=== PATIENT | male | born 1970 | race Caucasian/White ===

== ENCOUNTER → 2016-08-05 | Outpatient (CLI) | payer SELFPAY ==
[~2016-08-05] MED LIST: ACYCLOVIR PO; BACTRIM DS TABL1 TA2 PO; SEROQUEL25 MG PO; TYL325 PO
[2016-08-05 15:33] LABS: HEMATOCRIT 42.8 % (38.0-50.0); HEMOGLOBIN 14.6 gm/dL (13.0-16.0); MEAN CELL VOLUME 89.8 FL (83-96); MEAN CORPUSCULAR HEMOGLOBIN 30.6 PG (28-34); MEAN CORPUSCULAR HGB CONC 34.1 g/dL (30-36); MEAN PLATELET VOLUME 8.4 FL (6.5-11.5); RED BLOOD COUNT 4.76 X10e (3.90-5.60); RED CELL DISTRIBUTION WIDTH 13.1 % (11.0-15.5); WHITE BLOOD COUNT 7.8 X10e3 (4.0-10.5)
[2016-08-05 15:48] LABS: CALCIUM SERUM 9.3 mg/dL (8.4-10.2); GLOM FILT RATE Estimated 91.1 mL/min (>60); POTASSIUM 3.8 mmol/L (3.5-5.1)
== END | disposition home or self-care (01) ==
LOC: SLAB 15:19
PROVIDERS: Podiatrist
DX: I10 Essential (primary) hypertension (principal)
CPT/HCPCS: 36415; 80048; 85027

== ENCOUNTER → 2016-08-06 | Outpatient (CLI) | payer SELFPAY ==
--- NOTE | ~2016-08-06 | EKG ---
PATIENT: MAURICIO HOWARD UNIT #: [id number] Ventricular Rate: 93 BPM Atrial Rate: 93 BPM P-R Interval: 136 ms QRS Duration: 80 ms Q-T Interval: 348 ms QTC Calculation(Bezet): 432 ms P [place]: 52 degrees Calculated R [place]: 42 degrees Calculated T [place]: 39 degrees Diagnosis Line: Normal sinus rhythm Diagnosis Line: Moderate voltage criteria for LVH, may be normal Diagnosis Line: variant Diagnosis Line: Baseline wander Otherwise normal ECG Diagnosis Line: When compared with ECG of 29-MAR-2016 16:38, Diagnosis Line: No significant change was found Diagnosis Line: Confirmed by ARCHANA SANTILLAN MD ([id number]) on 08/11/2016 Diagnosis Line: 9:24:01 AM INTERPRETING MD: JACQUE LUU
== END | disposition home or self-care (01) ==
LOC: SEKG 14:05
DX: Z01.810 Encounter for preprocedural cardiovascular examination (principal); M20.22 Hallux rigidus, left foot; I10 Essential (primary) hypertension
CPT/HCPCS: 93005

== ENCOUNTER → 2016-12-29 | Outpatient (CLI) | payer SELFPAY ==
[2016-12-29 14:40] LABS: BASOPHIL# 0.1 X10e3 (0-0.3); EOSINOPHIL# 0.2 X10e3 (0-0.7); EOSINOPHIL% 1.9 % (0.0-7.0); HEMATOCRIT 40.3 % (38.0-50.0); HEMOGLOBIN 13.8 gm/dL (13.0-16.0); LYMPHOCYTE# 2.7 X10e3 (1.0-3.5); LYMPHOCYTE% 24.2 % (17.0-45.0); MEAN CELL VOLUME 88.4 FL (83-96); MEAN CORPUSCULAR HEMOGLOBIN 30.3 PG (28-34); MEAN CORPUSCULAR HGB CONC 34.3 g/dL (30-36); MEAN PLATELET VOLUME 8.3 FL (6.5-11.5); MONOCYTE# 0.9 X10e3 (0-1.0); MONOCYTE% 7.7 % (3.0-12.0); NEUTROPHIL# 7.2 X10e3 (1.5-7.1); NEUTROPHIL% 65.2 % (40-75); PLATELET COUNT 245 X10e3 (140-420); RED BLOOD COUNT 4.56 X10e (3.90-5.60); WHITE BLOOD COUNT 11.1 X10e3 (4.0-10.5)
[2016-12-29 14:58] LABS: DIFF IND NO
[2016-12-29 15:05] LABS: BUN/CREATININE RATIO 20.83; CREATININE SERUM 1.2 mg/dL (0.6-1.4); GLOM FILT RATE Estimated 72.6 mL/min (>60)
[2016-12-29 15:08] LABS: POTASSIUM 2.8 mmol/L (3.5-5.1)
== END | disposition home or self-care (01) ==
LOC: SLAB 14:24
PROVIDERS: Podiatrist
DX: Z01.812 Encounter for preprocedural laboratory examination (principal); M20.21 Hallux rigidus, right foot
CPT/HCPCS: 36415; 80048; 85025